=== PATIENT | male | born 1980 | race African-American/Black ===

== ENCOUNTER 2022-11-13 10:02 | Outpatient (REF) | payer OTHER, SELFPAY ==
--- NOTE | ~2022-11-13 | US_ITS ---
EXAMINATION: US RETROPERITONEAL COMPLETE (RENAL) CLINICAL INFORMATION: Calculus of kidney. COMPARISON: None TECHNIQUE: Real-time imaging of the kidneys and bladder. FINDINGS: RIGHT KIDNEY: 9.5 x 5.1 x 4.5 cm (SAG x AP x TRV). The kidney is normal in size, contour, and echogenicity. Renal cortical thickness is normal. No focal parenchymal lesions or hydronephrosis. There are echogenic foci which do not meet formal ultrasound criteria for calculi. No definite calculus is seen. LEFT KIDNEY: 9.8 x 5.5 x 4.6 cm (SAG x AP x TRV). The kidney is normal in size, contour, and echogenicity. Renal cortical thickness is normal. No focal parenchymal lesions or hydronephrosis. At the interpolar aspect, an 8 mm shadowing, nonobstructing calculus is seen, with twinkle artifact. BLADDER: Well distended and normal. Bilateral ureteral jets are demonstrated. Prevoid bladder volume is 332 mL. Postvoid bladder volume is 5 mL. OTHER: Prostate dimensions are 2.9 x 2.5 x 3.2 cm (volume 12.0 mL). US/US retroperitoneal comp IMPRESSION: An 8 mm nonobstructing left renal calculus is seen. No definite right renal calculus is seen. No hydronephrosis is noted bilaterally.
== END 2022-11-13 10:03 | disposition home or self-care (01) ==
LOC: HO.US 10:02
PROVIDERS: PCP Family Medicine; Visit Provider Physician Assistant
DX: N20.2 Calculus of kidney with calculus of ureter (principal); N13.39 Other hydronephrosis
CPT/HCPCS: 76770

== ENCOUNTER 2023-04-09 12:34 | Emergency (ER) | payer OTHER, SELFPAY ==
--- NOTE | ~2023-04-09 | XR_ITS ---
EXAMINATION: XR CHEST CLINICAL INFORMATION: Shortness of breath COMPARISON: None available. TECHNIQUE: 2 views of the chest were obtained. FINDINGS: No significant abnormality is noted involving the heart, lungs, mediastinum, bony thorax or soft tissues. XR/XR chest 2V IMPRESSION: Unremarkable examination.
[2023-04-09 12:37] VITALS: BP 162/97; PULSE 83; RESP 18; TEMP 36.8; O2SAT 92; BMI 32.1
--- NOTE | 2023-04-09 12:37 | ED_ITS ---
HPI - General Adult General Chief complaint: Upper Respiratory Symptoms Stated complaint: SOB, coughing Time Seen by Provider: 04/09/23 13:02 Source: patient Mode of arrival: ambulatory Limitations: no limitations History of Present Illness HPI narrative: This is a 42-year-old male who is history of asthma who presents to the ER with 4 days of cough and wheezing. Patient reports this was triggered as he is beronica ardon had work done is house and there is a lot of dust and debris. He has been using his 's inhaler with continued symptoms. He no longer has an inhaler of his own. He denies any runny nose, chest pain, shortness of breath, fevers or chills. No productive cough. No recent travel or sick contact. Related Data Previous Rx's Medication Instructions Recorded prednisone 20 mg tablet 40 mg PO DAILY #10 tabs 04/09/23 Allergies Allergy/AdvReac Type Severity Reaction Status Date / Time No Known Allergies Allergy Verified 04/09/23 12:39 Review of Systems Review of Systems: Yes all other systems are reviewed and are negative Constitutional: Constitutional: Reports no additional constitutional complaints, Denies body ache(s), Denies chills, Denies fever(s), Denies headache(s) and Denies weakness Eyes: Eyes: Reports no additional eye complaints and Denies change in vision ENT: Reports system reviewed and no additional complaints, except as documented, Denies dizziness, Denies headache(s), Denies nasal congestion, Denies nasal discharge and Denies neck pain Cardiovascular: Cardiovascular: Reports no additional cardiovascular complaints, Denies chest pain, Denies leg edema and Denies dyspnea Respiratory: Respiratory: Reports no additional respiratory complaints, Reports cough, Denies dyspnea and Reports wheezing Gastrointestinal: Gastrointestinal: Reports no additional gastrointestinal complaints, Denies abdominal pain, Denies diarrhea, Denies nausea and Denies vomiting Genitourinary: Genitourinary: Denies urinary incontinence Musculoskeletal: Musculoskeletal: Reports no additional musculoskeletal complaints, Denies back pain, Denies arthralgias, Denies joint swelling, Denies neck pain, Denies numbness and Denies tingling Integumentary/Breasts: Skin/Breast: Reports system reviewed and no additional complaints, except as docu and Denies rash Neurologic: Reports system reviewed and no additional complaints, except as documented, Denies dizziness, Denies headache(s), Denies numbness, Denies tingling and Denies weakness Allergic/Immunologic: Allergic/Immunologic: Reports wheezing PMFSH Past Medical History Attestation statement: The following information was validated with the patient. Source: old records reviewed and nursing notes reviewed Social History Social History Advance Directives: No Advance Directives Information Provided: No Physical Exam ED Vital Signs: Vital Signs - 24 hr 04/09/23 12:37 Temperature 98.3 F Pulse Rate 83 Respiratory Rate 18 Blood Pressure 162/97 H Pulse Oximetry 92 Oxygen Delivery Method Room Air BMI result Body Mass Index 32.1 Const General: cooperative, healthy appearing, comfortable and no acute distress Orientation/consciousness: patient oriented x3 Limitations: no limitations HENMT Head: Yes normal to inspection Ears: hearing grossly normal bilaterally and TM's normal bilaterally Throat: Yes posterior oropharynx normal, Yes tonsils normal and Yes uvula midline Eyes General: appearance normal, both eyes and all related structures Pupils: Equal, round and reactive pupils present Neck Neck: Yes normal visual inspection, Yes full ROM, Yes no lymphadenopathy and Yes no meningeal signs Chest Chest palpation & inspection: normal inspection of the chest Resp Other: Mild expiratory wheezing Effort & Inspection: normal respiratory effort Cardio Rate: regular rate Rhythm: regular rhythm Peripheral pulses: Peripheral pulses 2+ throughout GI Inspection: Yes normal to inspection Palpation (GI): Soft to palpation and nontender General: Yes no CVA tenderness Back/Spine/Pelvis Back: no CVA tenderness Thoracic/Lumbar Spine: thoracic and lumbar spine normal to inspection Skin General skin exam: no rashes or lesions noted Neuro General: patient oriented x3, moves all extremities and no meningeal signs Cranial nerves: Yes Equal, round and reactive pupils present Cognition (Neuro): normal cognition Gait exam (Neuro): Normal gait present Extrem General: Yes normal to inspection, Yes no pedal edema and Yes no calf tenderness Course Course Course Narrative: RME performed by Olesya Randall PA-C. Patient is a 42 year old assigned male at presenting to the emergency department with shortness of breath. Imaging ordered. Patient placed back in the waiting room pending room a vailability and results. Reevaluation(s) Reevaluation #1: X-ray shows no acute finding. Patient giving albuterol MDI with improvement. Plan for discharge home with prednisone course and albuterol p.r.n.. Reviewed worrisome signs and symptoms of when to return to the emergency room. Comfortable plan for discharge home. Medications Administered Discontinued Medications Generic Name Dose Route Start Last Admin Trade Name Jessica PRN Reason Stop Dose Admin Albuterol Sulfate 2 puff 04/09/23 13:21 04/09/23 13:47 Albuterol Sulfate 90 Mcg 8 Gm Inhaler INHALE 04/09/23 13:22 2 puff ONCE ONE Administration Medical Decision Making Medical Decision Making MDM Narrative: 42-year-old male with a history of asthma who ran out of his inhalers presents to the ER with 4 days of cough and wheezing. On exam patient mild expiratory wheezing. Exam otherwise is benign. Oxygen saturation is normal. Likely asthma exacerbation. Patient will have chest x-ray and albuterol MDI Offered COVID testing but declined Differential Diagnosis Differential Diagnoses: The differential diagnosis associated with the presentation includes Viral syndrome, pneumonia Low concern for PE-perc 0 Independent Interpretation I performed an independent interpretation of an: Plain X-Ray Interpretation: I indepndety reviewed the x-ray and agree with radiologist's report Radiology Impression Discussion of test interpretation with radiology: I have reviewed the radiologist's reading. Radiologist Impression: Launch?Image [address] [address] XRay Report Signed Patient: Campos Solorzano MR#: [id number] : 1980 Acct:[id number] Age/Sex: 42 / M ADM Date: 04/09/23 Loc: HO.ED Attending Dr: Ordering Physician: Olesya Randall Date of Service: 04/09/23 Procedure(s): XR chest 2V Accession Number(s): [id number] cc: Olesya Randall~ EXAMINATION: XR CHEST CLINICAL INFORMATION: Shortness of breath COMPARISON: None available. TECHNIQUE: 2 views of the chest were obtained. FINDINGS: No significant abnormality is noted involving the heart, lungs, mediastinum, bony thorax or soft tissues. XR/XR chest 2V IMPRESSION: Unremarkable examination. Discharge Plan Discharge Clinical Impression: Asthma attack Patient Disposition: Home, Self-Care Instructions: Asthma (DC) Prescriptions: New prednisone 20 mg tablet 40 mg PO DAILY Qty: 10 0RF
[2023-04-09] MEDS: Albuterol Sulfate 90 MCG 8 GM INHALER 2 PUFF INHALE (13:47)
== END 2023-04-09 14:21 | disposition home or self-care (01) ==
PROVIDERS: Emergency Provider Emergency Medicine; PCP Family Medicine
DX: R06.02 Shortness of breath (principal); R05.9 Cough, unspecified; J45.909 Unspecified asthma, uncomplicated
CPT/HCPCS: 71046; 99282; 99284

== ENCOUNTER 2025-08-28 15:44 | Outpatient (REF) | payer OTHER, SELFPAY ==
--- NOTE | ~2025-08-28 | XR_ITS ---
EXAMINATION: XR CERVICAL SPINE CLINICAL INFORMATION: RADICULOPATHY COMPARISON: None available. TECHNIQUE: 6 views FINDINGS: Straightening of the cervical curvature. No prevertebral soft tissue swelling. No acute fracture or spinal listhesis. Vertebral body heights are maintained. Disc spaces are maintained. Apparent mild bilateral neural foramen narrowing at a few levels. No suspicious osseous lesion. Lung apices are clear. XR/XR cervical spine 5V IMPRESSION: No acute findings Apparent mild bilateral neural foramen narrowing at a few levels. Electronically signed by: Juancarlos Baker MD 08/29/2025 11:16 AM DON[facility]
--- OUTSIDE RECORDS SUMMARY | 2025-08-28 17:13 | XMS_ITS | Encounter Summary ---
Author Organization [facility] Address [address] [facility] [address] [place] [phone] Phone Care Team Providers Care Stopper Maker Helper Name Role Phone Pcp, Unknown Primary Care Provider Unavailabl e Encounter Details Date Type Department Care Team (Latest Contact Info) Description 08/27/2025 Transcribe Orders Virtual Department [address] [place] [address] Sushma Arnold PA [address] [place] [address] [email or web address] Radiculopathy, cervical (Primary Dx) Social History Tobacco Use Types Packs/Day Years Used Date Smoking Tobacco: Never Assessed Education Answer Date Recorded Are you interested in more education? Not on gisselle e 02/13/2023 Are you concerned about learning? Not on file 02/13/2023 No 02/13/2023 No 02/13/2023 Food Answer Date Recorded Within the past 6 months we worried whether our food would run out before we got money to buy more. Never True 08/19/2025 Within the past 6 months the food we bought just didn't last and we didn't have enough money to get more. Never True Residential Stability Answer Date Recor ded What is your housing situation today? I have tim sing 08/19/2025 How many times have you move d in the past 12 months? Zero (I did not move) 08/19/2025 Paying for Meds Answer Date Recorded Do you have trouble paying for medicines? No 08/19/2025 Paying Utility Bills Answer Date Record ed Do you have trouble paying your heating or elect ricity bill? No 08/19/2025 Transportation Answer Date Recorded Has the lack of transportati on kept you from medical appointments or from getting medications? No 08/19/2025 Digital Access Answer Date Recorded No 08/19/2025 Yes 08/19/2025 Do you have reliable internet access at home? Ye s 08/19/2025 Do you have a device (e.g., phone, tablet, computer) with a working camera? Yes 08/19/2025 Intimate Partner Violence Answer Date R ecorded Are you denied basic needs s uch as food, clothing, or medical care? No 08/19/2025 In the past 12 months have y ou been in a relationship with a person who hurts, threatens, or tries to control you? No 08/19/2025 Are you denied basic needs s uch as food, clothing, or medical care? No 08/19/2025 In the past 12 months have y ou been in a relationship with a person who hurts, threatens, or tries to control you? No 08/19/2025 Sex and Gender Information Value Date Recorded Sex Assigned at Male 08/19/2025 4:26 PM EST Legal Sex Male 11:32 AM EST Gender Identity Male 08/19/2025 4:26 PM EST Sexual Orientation Not on file documented as of this encounter Plan of Treatment Scheduled Orders Name Type Priority Associated Diagnoses Orde r Schedule XR Cervical Spine Imaging Routine Radiculopathy, cervical Expected: 08/27/2025, Expires: 08/27/2026 documented as of this encounter Visit Diagnoses Diagnosis Radiculopathy, cervical- Primary Brachial neuritis or radiculitis nos documented in this encounter Care Teams Stopper Maker Helper Relationship Specialty Start Date End Date Pcp, Unknown PCP - General 08/19/25 documented as of this encounter Additional Source Comments The information contained in this document represents components of the legal health record. It is not the complete legal health record.[facility]
--- OUTSIDE RECORDS SUMMARY | 2025-08-28 17:13 | XMS_ITS | Clinical Summary ---
Author Organization [facility] Address [address] [place] [phone] Phone Care Team Providers Care Plane Tender Name Role Phone Pcp, Unknown Primary Care Provider Unavailabl e Allergies No known active allergies Medications ondansetron (ZOFRAN-ODT) 4 MG disintegrating tablet Take 1 tablet (4 mg total) by mouth every 8 (eight) hours as needed for nausea. 20 tablet 2 Active tamsulosin (FLOMAX) 0.4 mg Cap Take 1 capsule (0.4 mg total) by mouth daily. 7 capsule 2 Active tiZANidine (ZANAFLEX) 2 MG tablet Take 2 tablets (4 mg total) by mouth every 6 (six) hours as needed (pain). 25 tablet 5 Active lidocaine (LIDODERM) 5 % Place 1 patch onto the skin daily. Remove & Discard patch within 12 hours or as directed by MD 30 patch 5 Active oxyCODONE 5 MG immediate release tablet Take 1 tablet (5 mg total) by mouth every 4 (four) hours as needed for pain (specific location in comments). Partial fill ok 6 tablet 5 Active morphine (MSIR) 15 MG tablet Take 1 tablet (15 mg total) by mouth every 4 (four) hours as needed for pain (specific location in comments). Partial fill ok 15 tablet 2 025 Discontin ued(Expir ed) oxyCODONE 5 MG immediate release tablet Take 1 tablet (5 mg total) by mouth every 4 (four) hours as needed. Partial fill ok 20 tablet 3 025 Discontin ued(Expir ed) Encounters Date Type Department Care Team Description 08/27/2025 Transcribe Orders Virtual Department [address] [place] [address] Sushma Arnold PA Radiculopathy, cervical (Primary Dx) 08/21/2025 1:20 PM EST Office Visit [facility] at [address] [id number] Forest Allan PA-C Neck pain (Primary Dx) 08/19/2025 4:37 PM EST - 08/19/2025 10:13 PM EST Emergency [facility] [address] [place] [address] Discharge Disposition: Home or Self Care from Last 3 Months Social History Tobacco Use Types Packs/Day Years [...] PM EST Sexual Orientation Not on file Last Filed Vital Signs Vital Sign Reading Time Taken Comments Blood Pressure 122/79 08/19/2025 10:11 PM EST Pulse 69 08/19/2025 10:11 PM EST Temperature 36.4 C (97.5 F) 08/19/2025 10:11 PM EST Respiratory Rate 16 08/19/2025 10:11 PM EST Oxygen Saturation 99% 08/19/2025 10:11 PM EST Inhaled Oxygen Concentration - - Weight 74.8 kg (165 lb) 08/19/2025 4:25 PM EST Height 152.4 cm (5') 08/19/2025 4:25 PM EST Body Mass Index 32.22 08/19/2025 4:25 PM EST Plan of Treatment Health Maintenance Due Date Last Done Comments LIPID PANEL 1982 DEPRESSION SCREENING 1994 SMOKING Hx and SMOKELESS TOBACCO SCREENING 1995 HEPATITIS C SCREENING 2000 HIV ONE-TIME SCREENING (18-6 5 YEARS) 2000 INFLUENZA VACCINE (#1) 2025 COVID-19 VACCINE (2024-2 6 season) 2025 10/30/2021, 01/18/2021, 12/28/2020 SCREENING FOR DIABETES 09/22/2026 09/22/2023 Adult Td,Tdap Booster 04/05/2029 04/05/2019 HEPATITIS A VACCINES Aged Out No long er eligible based on patient's age to complete this topic HIB VACCINES Aged Out No longer eligi ble based on patient's age to complete this topic IPV VACCINES Aged Out No longer eligi ble based on patient's age to complete this topic MENINGOCOCCAL VACCINES (ACWY) Aged Out No longer eligible based on patient's age to complete this topic MENINGOCOCCAL VACCINES (B) Aged Out N o longer eligible based on patient's age to complete this topic PNEUMOCOCCAL VACCINES (0-49 years) Aged Out No longer eligible b ased on patient's age to complete this topic Medical Devices Not on file Procedures Procedure Name Priority Date/Time Associated Diagnosis Comments XR SHOULDER 2 VIEWS (RIGHT) Routine 08/19/2025 8:46 PM EST ECG 12-LEAD STAT 08/19/2025 5:24 PM EST from Last 3 Months Results * XR SHOULDER 2 VIEWS (RIGHT) (08/19/2025 8:46 PM EST) Anatomical Region Laterality Modality Shoulder Right Computed Radiogr aphy 08/19/2025 9:32 PM EST Impressions 08/19/2025 9:35 PM EST No acute fracture. Narrative 08/19/2025 9:35 PM EST XR SHOULDER 2 OR MORE VIEWS (RIGHT) Referring clinician's provided indication for this examination in Epic: Pain COMPARISON: None available FINDINGS: No acute fracture. Normal glenohumeral alignment and joint space. Clavicle acromial end deformity may represent old fracture. Acromioclavicular moderate osteoarthritis. Spur in the coracoclavicular region of the clavicle. Procedure Note Daniel Juan MD, MPH - 08/19/2025 XR SHOULDER 2 OR MORE VIEWS (RIGHT) Referring clinician's provided indication for this examination in [facility]:Pain COMPARISON: None available FINDINGS: No acute fracture. Normal glenohumeral alignment and joint space. Clavicleacromial end deformity may represent old fracture. Acromioclavicularmoderate osteoarthritis. Spur in the coracoclavicular region of theclavicle. IMPRESSION: No acute fracture. us Anu Rebolledo PA-C IMG XR UPPER EXTREMITY Jyoti l Result * ECG 12-LEAD (08/19/2025 5:24 PM EST) Ventricular Rate EKG/MIN 64 BPM [facility] Atrial Rate 64 BPM [facility] AR Interval 130 ms [facility] QRS Duration 78 ms [facility] QT Interval 404 ms [facility] QTC Interval 416 ms [facility] P [place] 59 degrees [facility] R Wave [place] 31 degrees [facility] T Wave [place] 16 degrees [facility] 08/19/2025 5:24 PM EST 08/20/2025 10:20 AM EST Narrative [facility] - 08/20/2025 10:20 AM EST Normal sinus rhythm Normal ECG No previous ECGs available Confirmed by Terence Obando ([id number]) on 08/20/2025 10:20:35 AM us Anshul Leblanc MD ECG ORDERABLES F inal Result [facility] from Last 3 Months Insurance [facility] NON NSPG PCP [place] [employer] [place] [place] S[place] [facility] NON NSPG PCP [facility] [address] [facility] NON NSPG PCP S[place] [facility] [place] [facility] NON NSPG PCP [facility] [place] [facility] Care Teams Plane Tender Relationship Specialty Start Date End Date Pcp, Unknown PCP - General 08/19/25 Additional Source Comments The information contained in this document represents components of the legal health record. It is not the complete legal health record.[facility]
--- OUTSIDE RECORDS SUMMARY | 2025-08-28 17:13 | XMS_ITS | Encounter Summary ---
Author Organization [facility] Address [address] [place] [phone] Phone Care Team Providers Care Radiology Transporter Name Role Phone Pcp, Unknown Primary Care Provider Unavailabl e Pcp, Unknown Primary Care Provider Unavailabl e Encounter Details Date Type Department Care Team (Late st Contact Info) Description 09/22/2023 Procedure Pass [facility], Ct Scan - [address] [address] Social History Tobacco Use Types Packs/Day Years Used Date Smoking Tobacco: Never Assessed Education Answer Date Recorded Are you interested in more education? Not on gisselel e 02/13/2023 Are you concerned about learning? Not on file 02/13/2023 No 02/13/2023 No 02/13/2023 Digital Access Answer Date Recorded No 03/16/2023 No 03/16/2023 Reliable internet access at home? Not on file 03/16/2023 Device with a working camera? Not on file Intimate Partner Violence Answer Date R ecorded Are you denied basic needs s uch as food, clothing, or medical care? No 09/24/2023 In the past 12 months have y ou been in a relationship with a person who hurts, threatens, or tries to control you? No 09/24/2023 Are you denied basic needs s uch as food, clothing, or medical care? No 09/24/2023 In the past 12 months have y ou been in a relationship with a person who hurts, threatens, or tries to control you? No 09/24/2023 Sex and Gender Information Value Date Recorded Sex Assigned at Male 08/19/2025 4:26 PM EST Legal Sex Male 11:32 AM EST Gender Identity Male 08/19/2025 4:26 PM EST Sexual Orientation Not on file documented as of this encounter Functional Status * Calculated C-SSRS Risk Score (Lifetime/Recent) Answer Date of Assessment Author No Risk Indicated 09/24/2023 6:53 PM EST Anne Goodman * [place] Suicide Severity Rating Scale (Screener/Recent Self-Report) Question Answer Date of Assessment Author 1. Wish to be (Past 1 Month) No 023 6:53 PM Anne Villavicencio 2. Non-Specific Active Suici lyric Thoughts (Past 1 Month) No 09/24/2023 6:53 PM EST Suri Goodman on 6. Suicidal Behavior (Lifetime) No 6:53 PM Anne Villavicencio documented as of this encounter Plan of Treatment Not on file documented as of this encounter Visit Diagnoses Not on filedocumented in this encounter Care Teams Radiology Transporter Relationship Specialty Start Date End Date Pcp, Unknown PCP - General 09/24/22 09/23/23 Pcp, Unknown PCP - General 08/19/25 documented as of this encounter Additional Source Comments The information contained in this document represents components of the legal health record. It is not the complete legal health record.[facility]
--- OUTSIDE RECORDS SUMMARY | 2025-08-28 17:13 | XMS_ITS | Encounter Summary ---
Author Organization [facility] Address [address] [facility] [address] [place] [phone] Phone Care Team Providers Care General Operations Manager Name Role Phone Pcp, Unknown Primary Care Provider Unavailabl e Pcp, Unknown Primary Care Provider Unavailabl e Encounter Details Date Type Department Care Team (Late st Contact Info) Description 09/24/2022 Procedure Pass [facility], Ct Scan - [address] [address] Social History Tobacco Use Types Packs/Day Years Used Date Smoking Tobacco: Never Assessed Sex and Gender Information Value Date Recorded Sex Assigned at Male 08/19/2025 4:26 PM EST Legal Sex Male 11:32 AM EST Gender Identity Male 08/19/2025 4:26 PM EST Sexual Orientation Not on file documented as of this encounter Plan of Treatment Not on file documented as of this encounter Visit Diagnoses Not on filedocumented in this encounter Care Teams General Operations Manager Relationship Specialty Start Date End Date Pcp, Unknown PCP - General 09/24/22 09/23/23 Pcp, Unknown PCP - General 08/19/25 documented as of this encounter Additional Source Comments The information contained in this document represents components of the legal health record. It is not the complete legal health record.[facility]
== END 2025-08-28 15:45 | disposition home or self-care (01) ==
LOC: HO.XRAY 15:44
PROVIDERS: Visit Provider Physician Assistant
DX: M54.12 Radiculopathy, cervical region (principal)
CPT/HCPCS: 72050

== ENCOUNTER 2025-09-01 10:14 | Emergency (ER) | payer OTHER, SELFPAY ==
--- NOTE | ~2025-09-01 | XR_ITS ---
CLINICAL HISTORY: pain 3 views right shoulder Comparison: None Findings: No fractures or dislocations. Moderate acromioclavicular degenerative changes are present. No radiopaque foreign body. Normal visualized right chest. Impression: 1. Moderate acromioclavicular degenerative disease. This document has been electronically signed by: Angel Campos MD on 09/01/2025 15:03:18
[2025-09-01 10:18] VITALS: BP 204/107; PULSE 81; RESP 16; TEMP 36.3; O2SAT 95; BMI 31.2
--- NOTE | 2025-09-01 10:47 | PC.NURSE ---
patient a&ox3, noted to be hypertensive in triage- will recheck vitals shortly, pt states he presently has 4/10 pain to rt neck/shoulder area which at time increases to 10/10 especially after waking up. pt denies injury states he just woke up with the pain. pt awaiting provider evaluation
[2025-09-01 12:30] VITALS: BP 170/106; PULSE 74; RESP 16; O2SAT 96
--- NOTE | 2025-09-01 12:42 | ED_ITS ---
HPI - Neck Pain/Injury General Chief Complaint: Neck Pain/Injury Stated Complaint: Back Pain Time Seen by Provider: 09/01/25 11:33 Source: patient and RN notes reviewed Mode of arrival: ambulatory Limitations: no limitations History of Present Illness ED Provider: Apoorva Neal PA-C HPI Narrative: This is a 44-year-old male who reports acute onset of severe neck, right shoulder, and right arm pain that began suddenly on Halloween morning, without any clear inciting trauma or injury. The pain radiates from his neck down the right arm to the fingertips and is described as burning, throbbing, and sometimes cold, with associated paresthesias including pins, needles, and tingling in the fingers. He also notes significant biceps soreness, likening it to the sensation after an intense workout. Sleep is markedly disrupted, with the patient able to rest only about two hours at a time due to pain. Symptoms are sometimes triggered or worsened by coughing or certain shoulder movements, which can produce a ?pinch? or ?crack? sensation. He denies any prior similar episodes but has a history of both shoulders being previously or dislocated. He recently completed a prednisone taper (50 mg step-down, finished two days ago) with minimal benefit, and is currently taking gabapentin 300 mg daily for nerve pain (limited benefit, causes vivid dreams). He has been advised by [facility] to stop ibuprofen and continue acetaminophen up to 3 g/day (none taken today). Physical therapy is scheduled to start, and is referred to [facility] for further evaluation. He denies any fevers, chills, chest pain, shortness of breath, headache, abdominal pain, nausea, vomiting or diarrhea. No other complaints or concerns at this time. Related Data Previous Rx's ?Medication ?Instructions ?Recorded prednisone 20 mg tablet 40 mg (2 x 20 mg) PO DAILY # 10 tabs 04/09/23 acetaminophen 500 mg tablet 500 mg PO Q6H PRN pain #30 tabs 09/01/25 (Tylenol Extra Strength) ketorolac 10 mg tablet 10 mg PO Q8H PRN pain 3 days #9 09/01/25 tabs Allergies Allergy/AdvReac Type Severity Reaction Status Date / Time No Known Allergies Allergy Verified 09/01/25 10:21 Review of Systems Review of Systems: Constitutional : No Fever, No Chills ENT/Mouth : No sore throat, No Rhinorrhea Eyes: No Eye Pain, No Swelling, No Redness Cardiovascular : No Chest Pain, No SOB Respiratory : No Cough, No Sputum Gastrointestinal : No Nausea, No Vomiting, No Diarrhea, No abdominal Pain Genitourinary : No Dysuria, No Hematuria Musculoskeletal : No joint pain, No Myalgias, No Joint Swelling Skin : No Skin Lesions Neuro : No Weakness, No Headache All other systems reviewed and are negative [facility] Social History Social History Alcohol intake: current Alcohol intake frequency: holidays/special occasions only Substance Use Type: Marijuana Physical Exam Exam: Exam: General: Awake, alert, and oriented X3. No acute distress. HEENT: Normal inspection Neck: No midline spine tenderness to palpation. Pt with ttp overlying the right trapezius muscle, extending diffusely throughout the right arm. Capillary refill less than 2 seconds. Sensation intact. Extremity: TTP overlying the AC joint, Pain and limited active range of motion: forward flexion and abduction to ~90? before pain; unable to place hand behind back without significant discomfort. CVS: Normal heart rate and rhythm. Pulses normal. Respiratory: No respiratory distress Skin: Warm, dry, no rashes noted to exposed skin. Normal skin color. Normal skin turgor. Extremities: Neuro: Oriented X 3. No motor deficit. No sensory deficit. Subjective paresthesias in right upper extremity; gross optometric tech strength intact. Vital Signs: Vital Signs: Last Vital Signs Temp 98.0 F 09/01/25 16:05 Pulse 81 09/01/25 16:05 Resp 16 09/01/25 16:05 BP 169/101 H 09/01/25 16:05 Pulse Ox 97 09/01/25 16:05 O2 Del Method Room Air 09/01/25 16:05 BMI result Body Mass Index 31.2 Medications Administered Discontinued Medications Generic Name Dose Route Start Last Admin Trade Name Freq PRN Reason Stop Dose Admin Ketorolac Tromethamine 30 mg 09/01/25 13:13 09/01/25 13:35 Ketorolac Tromethamine 30 Mg/Ml Vial IM 09/01/25 13:14 30 mg ONCE ONE Administration Morphine Sulfate 15 mg 09/01/25 13:13 09/01/25 13:35 Morphine Sulfate Immed Release 15 Mg Tablet PO 09/01/25 13:14 15 mg ONCE ONE Administration Medical Decision Making Medical Decision Making MDM Narrative: 44 y/o male with severe neck/shoulder pain and right upper-extremity radicular symptoms refractory to prednisone and gabapentin. Problem #1: Cervical Radiculopathy (suspected) Assessment: Symptoms of radiating neck pain with paresthesias consistent with cervical nerve root irritation; X-ray shows foraminal narrowing. Plan: * Toradol 30 mg IM in ED for anti-inflammatory effect. Pt had good relief from this today. * Continue gabapentin 300 mg daily as previously prescribed. * D/C on toradol for management - advised to avoid NSAIDs while on this, and reverse for severe pain only. * Encouraged follow-up with [facility] for further evaluation and possible advanced imaging (e.g., MRI) ? patient already scheduled. Problem #2: Right Shoulder Pain ? possible rotator cuff/AC joint irritation Assessment: Localized AC joint tenderness and limited ROM suggest rotator cuff or ligamentous involvement. Plan: * Initiate physical therapy (scheduled to start Wednesday). * xray of shoulder rervealing Moderate acromioclavicular degenerative disease. * Ice/heat as tolerated. * Acetaminophen up to 3 g/day for pain. Disposition / Follow-up: ? Return to ED for worsening neurologic deficit, uncontrolled pain, or new symptoms (e.g., weakness, incontinence). ? Outpatient follow-up with [facility] and physical therapy as scheduled. Differential Diagnosis Differential Diagnoses: The differential diagnosis associated with the presentation includes cervical radiculopathy, AC joint degeneration, sprain, strain Radiology Impression Discussion of test interpretation with radiology: I have reviewed the radiologist's reading. Radiologist Impression: Moderate acromioclavicular degenerative disease. Discharge Plan Discharge Clinical Impression: Acute pain of right shoulder, Cervical radiculopathy Patient Disposition: Home, Self-Care Instructions: Cervical Radiculopathy (ED), Shoulder Pain (ED) Additional Instructions: You were seen in the emergency department and you were found to have cervical radiculopathy as well as some degenerative changes in your right shoulder which could be caused by repetitious movements. Your x-rays of your right shoulder revealed degenerative changes in your AC joint. You were treated with Toradol in the emergency room. Continue taking Tylenol up to 3 g per day for pain control. Follow-up with physical therapy. Toradol could be taking sparingly as needed for severe pain. Please do not mix with any NSAIDs as this can increase your risk of bleeding. Your next dose of Toradol can be taken tomorrow AM Conservative Treatment: * Limit activities that worsen neck or shoulder pain.?Avoid heavy lifting, overhead activities, or sudden neck movements until cleared by your specialist or physical therapist. * Rest as needed, but maintain gentle range of motion exercises as tolerated.?Use ice or heat for comfort. * Warning Signs ? Return to ED Immediately for: * New or worsening weakness, numbness, or inability to move the arm or hand. * Loss of bowel or bladder control. * Severe, unrelenting pain not controlled by prescribed medications. * Fever, chills, or signs of infection. * Gait instability, difficulty walking, or new problems with balance. Prescriptions: New acetaminophen [Tylenol Extra Strength] 500 mg tablet 500 mg PO Q6H PRN (Reason: pain) Qty: 30 0RF ketorolac 10 mg tablet 10 mg PO Q8H PRN (Reason: pain) 3 Days Qty: 9 0RF Rx Instructions: Patient tolerated IM injection in the ED No Action prednisone 20 mg tablet 40 mg PO DAILY Qty: 10 0RF Interventions: ED Discharge Assessment Last Done: 09/01/25 16:05 Discharge Date/Time: 09/01/25 16:05 Print Language: Telugu
[2025-09-01] MEDS: Morphine Sulfate Immed Release 15 MG TABLET PO (13:35)
--- NOTE | 2025-09-01 13:37 | PC.NURSE ---
pt medicated for 510 pain
[2025-09-01 15:19] VITALS: BP 169/101; PULSE 81; RESP 16; TEMP 36.7; O2SAT 97
[2025-09-01 16:05] VITALS: BP 169/101; PULSE 81; RESP 16; TEMP 36.7; O2SAT 97
== END 2025-09-01 16:05 | disposition home or self-care (01) ==
PROVIDERS: Emergency Provider Emergency Medicine
DX: M54.12 Radiculopathy, cervical region (principal); M25.511 Pain in right shoulder
CPT/HCPCS: 73030; 96372; 99284; J1885

== ENCOUNTER → 2025-09-01 13:44 | Outpatient (BNV) | payer OTHER, SELFPAY | PROVIDERS: Emergency Provider Emergency Medicine; Visit Provider Radiology Diagnostic Radiology | DX: M19.011 Primary osteoarthritis, right shoulder (principal) | CPT/HCPCS: 73030 ==

== ENCOUNTER 2025-09-05 12:53 | Outpatient (REF) | payer OTHER, SELFPAY ==
[2025-09-05 13:53] LABS: MANUAL DIFF FLAG NO
[2025-09-05 14:00] LABS: Hematocrit 40.4 % (42.0-52.0); Hemoglobin 13.3 g/dl (14.0-18.0); Imm Gran Abs Auto 0.01 X10*3/uL (0.00-0.03); Imm Gran Pct Auto 0.2 % (0.0-0.4); Lymphocytes Absolute Auto 2.0 X10*3/uL (1.2-4.9); Mean Corpuscular HGB Conc 32.9 g/dl (31.0-36.0); Mean Corpuscular Hemoglobin 32.4 pg (27.0-33.0); Mean Corpuscular Volume 98.5 fL (80.0-98.0); NRBC Abs Auto 0.000 X10*3/uL (0.0-0.012); NRBC Pct Auto 0.0 /100WBC (0.0-0.2); Platelet Count 293 X10*3/uL (160-400); Red Blood Count 4.10 X10*6/uL (4.60-5.80); White Blood Count 5.9 X10*3/uL (4.8-10.8)
[2025-09-05 15:32] LABS: Alanine Aminotransferase 55 U/L (0-40); Albumin Level 4.5 g/dL (3.5-5.0); Alkaline Phosphatase 117 U/L (39-117); Anion Gap 9 (12-20); Aspartate Amino Transferase 34 U/L (5-37); Blood Urea Nitrogen 16 mg/dL (9-16); Calcium 9.6 mg/dL (8.4-10.2); Carbon Dioxide 32 mmol/L (22-29); Chloride 104 mmol/L (96-108); Cholesterol 217 mg/dL (<200); Estimated Glomerular Filt Rate > 60; HDL Cholesterol 69 mg/dL (>40); Potassium 3.9 mmol/L (3.3-5.1); Sodium 141 mmol/L (135-145); Total Protein 7.2 g/dL (6.5-8.0); Triglycerides 161 mg/dL (<150)
[2025-09-05 17:15] LABS: Reflex LDLD? No
== END 2025-09-05 12:54 | disposition home or self-care (01) ==
LOC: HO.LAB 12:53
PROVIDERS: Visit Provider Student in an Organized Health Care Education/Training Program
DX: Z00.00 Encounter for general adult medical examination without abnormal findings (principal); Z13.220 Encounter for screening for lipoid disorders; F10.90 Alcohol use, unspecified, uncomplicated; F17.210 Nicotine dependence, cigarettes, uncomplicated; M54.12 Radiculopathy, cervical region; M25.511 Pain in right shoulder; Z79.899 Other long term (current) drug therapy; Z76.89 Persons encountering health services in other specified circumstances; Z83.3 Family history of diabetes mellitus
CPT/HCPCS: 36415; 80053; 80061; 83036; 85025